=== PATIENT | male | born 1930 | race Caucasian/White ===

== ENCOUNTER 2017-10-28 07:43 | Observation (INO) | payer MEDICARE, OTHER ==
[~2017-10-28] VITALS: Ht 180.3 cm; Wt 91.4 kg
--- NOTE | ~2017-10-28 | CN ---
PATIENT NAME:YSABEL MOREL MEDICAL RECORD: [id number] : 30 LOCATION:D[facility]y D.2118 ADMIT DATE: 10/28/17 ACCOUNT: [id number] CONSULTING PHYSICIAN: FELIPE VIEIRA MD REFERRING PHYSICIAN: KOKI MORALES DO DATE OF CONSULTATION: 10/29/2017 HISTORY OF PRESENT ILLNESS: An 87-year-old gentleman, followed by Dr. Baker with a history of coronary artery disease, history of aortic stenosis, mild. 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 He had episode of chest pain yesterday. He is somewhat demented so history is somewhat iffy. If the cardiac enzymes are negative at this point. He typically according to is able to walk, etc. without anginal type symptomatology or dyspnea. We were asked to see him concerning his cardiovascular status. PAST MEDICAL HISTORY: Includes: 1. History of coronary artery disease. 2. Hypertension. 3. Hyperlipidemia, intolerant to statins. 4. Dementia. ALLERGIES: None known. MEDICATIONS: Include losartan 100 mg p.o. every day, verapamil 240 every day, pravastatin 80 every day, Namenda 10 b.i.d., Wellbutrin 300 b.i.d., hydrochlorothiazide 25 every day, and Synthroid 75 mcg every day. SOCIAL HISTORY: , nonsmoker and nondrinker. He takes all the ADLs. No set exercise program, but able to work in the yard. REVIEW OF SYSTEMS: The patient reports easy bruising but reports no swollen glands. The patient reports no fever, no night sweats, no significant weight gain, no significant weight loss. No significant exercise tolerance. The patient reports no dry eyes, no irritation, no vision change. Patient reports no difficulty hearing and no ear pain. Patient reports no frequent nose bleeds or nose and sinus problems. Patient reports on arm pain on exertion. No shortness of breath while lying down. No history of heart murmur. Patient reports no cough, no wheezing or coughing up blood. Patient reports no abdominal pain, no vomiting. Normal appetite. No diarrhea and not vomiting blood. No nausea and no constipation. Patient reports no incontinence. No difficulty urinating. No hematuria. No increased frequency. Patient reports no muscle aches. No weakness, no arthralgias, no back pain. No swelling of the extremities. Patient reports no abnormal mole, no jaundice, no rashes. Reports no loss of consciousness. No weakness and no numbness. No seizures, dizziness, or headaches. The patient reports no depression, no sleep disturbance, feeling safe in a relationship and no alcohol abuse. Patient reports on fatigue. Reports no runny nose or sinus pressure. No itching, no hives, and no frequent sneezing. PHYSICAL EXAMINATION: GENERAL: Pleasant gentleman in no acute distress. VITAL SIGNS: Blood pressure 137/89, pulse 60 and regular. HEENT: Normocephalic, atraumatic. NECK: No bruits noted. HEART: Regular, II-III/ systolic ejection murmur heard best primarily over CONSULT REPORT [id number] YSABEL MOREL the aortic area. LUNGS: Good air excursion. ABDOMEN: Soft, nontender. EXTREMITIES: Pulses are well preserved. There is no edema. DIAGNOSTIC DATA: ECG shows a left bundle branch block. IMPRESSION: Chest pain. Enzymes negative at this point. Given normal activity as of late, suspect noncardiac etiology. Does have gallstones. If surgery becomes indicated, no contraindication from a cardiovascular standpoint. TRANSINT:[id number] Voice Confirmation ID: [id number] DOCUMENT ID: [id number] FELIPE VIEIRA MD at 1155 CC: [id number] DICTATION DATE: 10/29/17846 BODY SERVICE TEAM MEMBER: 10/29/17 1214 DIS IN 10/29/17 [facility] [address] [place] [address]
[~2017-10-28 07:43] MED LIST: BRILINTA90 MG PO; CALAN SR240 MG PO; COZAAR100 MG PO; HYDROCHLOROTHIA25 MG PO; NITROQUICK0.4 MG SL; PRAVACHOL80 MG PO; SYNTHROID75 MCG PO
[2017-10-28 08:20] LABS: BASOPHILS 0.6 % (0-2); EOSINOPHILS 3.3 % (0-7); HEMATOCRIT 42.4 % (42.0-54.0); HEMOGLOBIN 14.9 g/dL (13.5-17.5); IMMATURE GRANULOCYTES 0.6 % (0-5); LYMPHOCYTES 25.1 % (15-50); MCHC 35.1 g/dL (31.0-37.0); MCV 88.1 fL (80.0-100.0); MONOCYTES 9.8 % (2-11); NEUTROPHILS 60.6 % (40-80); PLATELET COUNT 154 10x3/uL (130-400); RBC 4.81 10x6/uL (4.20-6.10); RDW 12.5 % (11.5-14.5); WBC 7.2 10x3/uL (4.8-10.8)
[2017-10-28 08:41] LABS: ALBUMIN 3.2 g/dL (3.4-5.0); ALKALINE PHOSPHATASE 88 U/L (46-116); ALT (SGPT) 18 U/L (10-68); CALC OSMOLALITY 292 mosm/kg (275-300); CALCIUM 9.9 mg/dL (8.5-10.1); CARBON DIOXIDE 29.9 mmol/L (21.0-32.0); CHLORIDE - SERUM 109 mmol/L (98-107); CREATININE - SERUM 1.1 mg/dL (0.6-1.3); GLUCOSE 120 mg/dL (74-106); POTASSIUM - SERUM 3.8 mmol/L (3.5-5.1); PROTEIN - SERUM 6.3 g/dL (6.4-8.2); SODIUM 144 mmol/L (136-145); UREA NITROGEN 27 mg/dL (7-18); eGFR NON AFRICAN AMERICAN 67 mL/min (90-120)
[2017-10-28 08:52] LABS: AMYLASE - SERUM 53 U/L (25-115); CKMB 1.7 U/L (0.0-3.6); CREATINE KINASE 59 UL (21-232); LIPASE 196 U/L (73-393); TROPONIN-I < 0.017 ng/mL (0.000-0.060)
[2017-10-28 09:39] LABS: APPEARANCE SLT CLOUDY (CLEAR); COLOR YELLOW (YELLOW)
[2017-10-28 09:40] LABS: AMORPHOUS SEDIMENT >1+ /lpf (NONE SEEN); BACTERIA FEW /hpf (NONE SEEN); BILIRUBIN NEGATIVE (NEGATIVE); EPITHELIAL CELLS RARE /hpf (0-5); GLUCOSE NEGATIVE (NEGATIVE); KETONE NEGATIVE (NEGATIVE); MUCUS <1+ /lpf (NONE SEEN); NITRITE NEGATIVE (NEGATIVE); PROTEIN NEGATIVE (NEGATIVE); RED CELLS - URINE 0-5 /hpf (0-5); UROBILINOGEN NORMAL (NORMAL); WHITE CELLS - URINE 0-5 /hpf (0-5)
[2017-10-28 19:27] LABS: CKMB 1.7 U/L (0.0-3.6); CREATINE KINASE 64 UL (21-232)
[2017-10-28 19:30] LABS: TROPONIN-I < 0.017 ng/mL (0.000-0.060)
[2017-10-28 21:30] VITALS: BP 120/50
[2017-10-28] MEDS ORDERED: NAMENDA10 MG PO (22:36)
[2017-10-28] MEDS ORDERED: BUPROPION XL300 MG PO (22:37)
[2017-10-28 23:07] VITALS: BP 112/58; BMI 27.9
[2017-10-29 01:12] VITALS: BP 131/57
[2017-10-29 01:33] LABS: CKMB 1.6 U/L (0.0-3.6); CREATINE KINASE 61 UL (21-232); TROPONIN-I < 0.017 ng/mL (0.000-0.060)
[2017-10-29 05:21] VITALS: BP 134/53
[2017-10-29 06:06] LABS: BASOPHILS 0.4 % (0-2); EOSINOPHILS 4.2 % (0-7); IMMATURE GRANULOCYTES 0.3 % (0-5); LYMPHOCYTES 21.8 % (15-50); MCH 30.8 pg (26.0-34.0); MCHC 34.1 g/dL (31.0-37.0); MEAN PLATELET VOLUME 9.8 fL (7.4-10.4); MONOCYTES 10.8 % (2-11); NEUTROPHILS 62.5 % (40-80); PLATELET COUNT 144 10x3/uL (130-400); RBC 4.54 10x6/uL (4.20-6.10); RDW 12.8 % (11.5-14.5); WBC 6.9 10x3/uL (4.8-10.8)
[2017-10-29 06:07] LABS: MCV 90.3 fL (80.0-100.0)
[2017-10-29 06:31] LABS: ALKALINE PHOSPHATASE 71 U/L (46-116); AMYLASE - SERUM 53 U/L (25-115); BILIRUBIN - TOTAL 0.65 mg/dL (0.2-1.3); CALC OSMOLALITY 286 mosm/kg (275-300); CALCIUM 8.8 mg/dL (8.5-10.1); CARBON DIOXIDE 30.3 mmol/L (21.0-32.0); CHLORIDE - SERUM 108 mmol/L (98-107); CKMB 1.4 U/L (0.0-3.6); CREATINE KINASE 56 UL (21-232); CREATININE - SERUM 1.3 mg/dL (0.6-1.3); GLUCOSE 101 mg/dL (74-106); LIPASE 142 U/L (73-393); PROTEIN - SERUM 5.9 g/dL (6.4-8.2); SODIUM 142 mmol/L (136-145); UREA NITROGEN 23 mg/dL (7-18); eGFR NON AFRICAN AMERICAN 55 mL/min (90-120)
[2017-10-29 06:35] LABS: ALT (SGPT) 26 U/L (10-68); TROPONIN-I < 0.017 ng/mL (0.000-0.060)
[2017-10-29 06:58] VITALS: Ht 180.3 cm; Wt 91.4 kg
[2017-10-29 07:50] VITALS: BP 137/89
[2017-10-29 10:58] VITALS: BP 98/62
[2017-10-29] MEDS ORDERED: ASPIRIN EC81 M1 PO (11:47)
== END 2017-10-29 13:14 | disposition home or self-care (01) ==
LOC: D.ER 07:43 → OBSVTIME 18:08 → D.EDHOLD 18:08 → D.M2 18:29
PROVIDERS: Family Medicine
DX: R07.89 Other chest pain (principal); I25.10 Atherosclerotic heart disease of native coronary artery without angina pectoris; Z95.5 Presence of coronary angioplasty implant and graft; I10 Essential (primary) hypertension; E78.5 Hyperlipidemia, unspecified; K80.80 Other cholelithiasis without obstruction; K21.9 Gastro-esophageal reflux disease without esophagitis; I73.9 Peripheral vascular disease, unspecified; I44.7 Left bundle-branch block, unspecified

== ENCOUNTER → 2018-07-17 12:26 | Outpatient (CLI) | payer MEDICARE, OTHER ==
[2017-10-29 06:58] VITALS: BMI 27.9
[~2018-07-17 12:26] MED LIST changes: +ASPIRIN EC81 M1 PO; +BUPROPION XL300 MG PO; +NAMENDA10 MG PO
== END | disposition home or self-care (01) ==
LOC: D.CT 12:26
DX: I65.23 Occlusion and stenosis of bilateral carotid arteries (principal)

== ENCOUNTER → 2018-07-31 12:36 | Outpatient (CLI) | payer MEDICARE, OTHER ==
[2017-10-29 06:58] VITALS: BMI 27.9
== END | disposition home or self-care (01) ==
LOC: D.CT 12:36
DX: R41.82 Altered mental status, unspecified (principal)

== ENCOUNTER 2018-11-10 07:34 | Inpatient (IN) | payer MEDICARE, OTHER ==
[2018-11-10] VITALS (8 sets, daily range): BP systolic 115–199; BP diastolic 56–89; BMI 29.3
--- NOTE | ~2018-11-10 | HEMODYNAMI ---
PATIENT:YSABEL MOREL MEDICAL RECORD: [id number] : 30 LOCATION:[facility] ADMISSION DATE: 11/10/18 Generatedon:11/10/201810:51 Patient name: YSABEL MOREL Patient #: [id number] SSN: : 1930 Date of study: 11/10/2018 Page: Of Hemodynamic Procedure Report Patient Data Patient Demographics Procedure consent was obtained First Name: YSABEL Gender: Male Last Name: MARIA TERESA : 1930 Middle Initial: C Age: 88 year(s) Patient #: [id number] Race: Unknown Additional ID: [id number] Contact details Address: [place] [address] State: [place] City: [place] Zip code: [address] Past Medical History Allergies: No known allergies Admission Admission Data Admission Date: 11/10/2018 Admission Time: 7:34 Height (in.): 70.87 BSA: 2.15 (m2) Height (cm.): 180 BMI: 29.32 (kg/m2) Weight (lbs.): 209.44 Weight (kg.): 95 Lab Results Lab Result Date: 11/10/2018 Lab Result Time: 0:00 Biochemistry Name Units Result Min Max BUN mg/dl 29 --(----)-* 7 18 Creatinine mg/dl 1.2 --(---*)-- 0.6 1.3 CBC Name Units Result Min Max Hemoglobin g/dl 16.3 --(--*-)-- 13.5 17.5 Procedure Procedure Types Cath Procedure Diagnostic Procedure LHC LH w/Coronaries PCI Procedure Coronary Stent Coronary Stent Initial Procedure Description Procedure Date Procedure Date: 11/10/2018 Procedure Start Time: 10:31 Procedure End Time: 10:47 Procedure Staff Name Function Dwayne Mcgregor MD Performing Physician Boubacar Lazaro RN Nurse Lillie Hatch RT Scrub Ritesh Nevarez RN Environmental Services Floor Tech Princess Dominique RT Monitor Procedure Data Cath Procedure Fluoroscopy Diagnostic fluoroscopy Total fluoroscopy Time: 2.6 time: 2.6 min min Diagnostic fluoroscopy Total fluoroscopy dose: 235 dose: 235 mGy mGy Contrast Material Contrast Material Type Amount (ml) Isovue 300 73 Entry Location Entry Primary Successful Side Size Upsize Upsize Entry Closure Succes sful Closure Location (Fr) 1 (Fr) 2 (Fr) Remarks Device Remarks Femoral Right 5 Fr 6 Fr Exoseal artery Short Estimated blood loss: 10 ml Diagnostic catheters Device Type Used For End Catheter Placement MULTIPACK Pigtail 5 Fr Procedure catheter MULTIPACK JL 4.0 5Fr Procedure catheter MULTIPACK 3DRC 5Fr Procedure catheter Procedure Complications No complications Procedure Medications Medication Administration Route Dosage Oxygen etCO2 Nasal cannula 2 l/min Lidocaine 2% added to field 20 Heparin Flush Bag added to field 2 bags (1000units/500ml NS) 0.9% NaCl I.V. 100 ml/hr Versed I.V. 1 mg Fentanyl I.V. 50 mcg Heparin Bolus I.V. 4000 units Versed I.V. 1 mg Fentanyl I.V. 50 mcg Fentanyl I.V. 50 mcg Hemodynamics Rest BSA: 2.15 (m2) HGB: 16.3 (g/dl) O2 Consumption: Estimated: 244.58 (ml/min) O2 Co nsumption indexed: Estimated:113.76 (ml/min/m) Heart Rate: 72 (bpm) Pressure Samples Time Site Value (mmHg) Purpose Heart Use Rate(bpm) 10:31 LV 127/10,25 Snapshot 74 10:32 AO 159/87(109) Pullback 67 Gradients Valve Time Site Site 2 Mean SEP/DFP Peak To Heart Use 1 (mmHg) (sec/min) Peak Rate (mmHg) (bpm) Aortic 10:32 LV AO 33 17 67 159/87(109) Calculations Valve P-P Mean Valve Index Valve Source Name Gradient Area Flow (cm2) Aortic 33 33 Snapshots Pre Cath Intra NCS Post Cath Vital Signs Time Heart Resp SPO2 etCO2 NIBP (mmHg) Rhythm Pain Sedation Rate (ipm) (%) (mmHg) Status Level (bpm) 10:03:11 67 16 94 36.1 162/57(122) NSR 0 (11) 10(A) , No pain 10:07:33 73 15 94 17.3 162/77(123) NSR 0 (11) 10(A) , No pain 10:11:53 72 15 94 33.8 166/77(118) NSR 0 (11) 10(A) , No pain 10:16:17 71 18 95 24.8 160/76(130) NSR 0 (11) 10(A) , No pain 10:20:41 73 13 96 24 161/75(129) NSR 0 (11) 10(A) , No pain 10:25:06 69 12 96 29.3 156/72(121) NSR 0 (11) 10(A) , No pain 10:29:32 69 16 94 25.6 162/68(97) NSR 0 (11) 10(A) , No pain 10:33:58 79 14 93 14.3 151/68(125) NSR 0 (11) 9(A) , No pain 10:38:16 76 11 93 27.8 139/66(112) NSR 0 (11) 9(A) , No pain 10:42:36 80 13 95 27.1 148/68(104) NSR 0 (11) 10(A) , No pain Medications Time Medication Route Dose Verified Delivered Reason Notes Effectiveness by by 10:07:04 Oxygen etCO2 2 Dwayne Buffie used for Nasal l/min Balbir Lazaro RN procedure cannula 10:07:21 Lidocaine 2% added 20ml Dwayne Dwayne for local to vial Balbir Mcgregor MD anesthetic field 10:07:39 Heparin Flush added 2 Dwayne Dwayne used for Bag to bags Balbir Mcgregor MD procedure (1000units/500ml field NS) 10:07:49 0.9% NaCl I.V. 100 Dwayne Buffie Per physician ml/hr Balbir Lazaro RN 10:29:29 Versed I.V. 1 mg Dwayne Buffie for sedation Balbir Lazaro RN 10:29:39 Fentanyl I.V. 50 Dwayne Buffie for sedation mcg Balbir Lazaro RN 10:33:05 Versed I.V. 1 mg Dwayne Buffie for sedation Balbir Lazaro RN 10:33:10 Fentanyl I.V. 50 Dwayne Buffie for sedation mcg Balbir Lazaro RN 10:35:25 Heparin Bolus I.V. 4000 Dwayne Buffie for verif ied units Balbir Lazaro RN anticoagulation with dr mcgregor 10:47:32 Fentanyl I.V. 50 Dwayne Buffie for sedation for mcg Jose MD Lazaro RN femstop discomfort Procedure Log Time Note 9:30:38 Time tracking: Regular hours (M-F 7:00 - 5:00) 9:30:41 Plan of Care:Hemodynamics will remain stable., Cardiac rhythm will remain stable., Comfort level will be maintained., Respiratory function will remain adequate., Patient/ family verbilizes understanding of procedure., Procedure tolerated without complication., Recovers from procedure without complications.. 9:43:48 Ritesh Nevarez RN sent for patient. Start room use. 9:52:39 Patient received from ED to CCL 3 Alert and oriented. Tansferred to table in Supine position. 9:52:40 Warm blankets applied, and shell hugger turned on for patient comfort. 9:52:40 Correct patient and procedure confirmed by team. 9:52:41 Signed procedure consent form obtained from patient. 9:52:42 ECG and BP/O2 sat monitors applied to patient. 9:52:43 Full Disclosure recording started 10:01:46 Vital chart was started 10:01:49 Baseline sample Acquired. 10:01:57 Rhythm: sinus rhythm 10:02:30 H&P Date Dictated: 11/10/2018 Emergent; H&P N/A. 10:02:33 Pre-procedure instructions explained to patient. 10:02:46 Family in waiting room. 10:02:49 Patient NPO since Midnight. 10:03:02 Patient allergic to No known allergies 10:03:06 Is the patient allergic to Iodine/contrast media? No. 10:03:09 Was the patient premedicated? Yes 10:03:11 Is patient on blood thinner?Yes 10:03:14 ACC The patient was administered the following blood thiners within the last 24 hours: ACCPlavix 10:03:16 Patient diabetic? No. 10:03:21 Snore? Yes 10:03:22 Sleep apnea? No 10:03:47 IV patent on arrival in left forearm with 0.9% NaCl at [facility]. 10:04:15 Lab Result : Creatinine 1.2 mg/dl 10:04:15 Lab Result : BUN 29 mg/dl 10:04:15 Lab Result : Hemoglobin 16.3 g/dl 10:04:21 Lab results completed and on chart. 10:04:26 Right groin area was prepped with chlora-prep and draped in sterile fashion 10:: Alarms reviewed by R. N. 10:: Sharps counted by scrub and verified by R.N. :: Physician paged 10:: Oxygen 2 l/min etCO2 Nasal cannula was administered by Boubacar Lazaro RN; used for procedure; 10:: Lidocaine 2% 20ml vial added to field was administered by Dwayne Mcgregor MD; for local anesthetic; 10::39 Heparin Flush Bag (1000units/500ml NS) 2 bags added to field was administered by Dwayne Mcgregor MD; used for procedure; 10::49 0.9% NaCl 100 ml/hr I.V. was administered by Boubacar Lazaro RN; Per physician; 10::46 Zero performed for pressure channel P1 10::58 Zero performed for pressure channel P1 10:14:23 Patient Height : 70.87 inches 10:14:28 Patient Weight : 209.44 lbs 10:16:26 Pre procedure: right dorsailis pedis pulse 2+ Normal; easily identifiable; not easily obliterated 10:28:41 Physician arrived 10:28:42 --------ALL STOP TIME OUT------ 10:28:43 Final Timeout: patient, procedure, and site verified with staff and physician. All members of the team are in agreement. 10:28:45 Right groin site verified by team. 10:28:50 Maximum allowable Isovue 300 dose 300ml. Physician notified. (300ml for normal creatinines. For patients with creatinine of 1.7 or higher multiply weight(kg) x 5 divided by creatinine.) 10:28:54 Fire Safety Assessment: A--An alcohol-based skin anteseptic being used preoperatively., C--Open oxygen or nitrous oxide is being used., D--An ESU, laser, or fiber-optic light is being used. 10:28:59 Physical assessment completed. ASA score P 2 - A patient with mild systemic disease as per Dwayne Mcgregor MD. 10:29:04 Sedation plan: IV Moderate Sedation Medication:Versed, Fentanyl 10:: Versed 1 mg I.V. was administered by Boubacar Lazaro RN; for sedation; 10:29:39 Fentanyl 50 mcg I.V. was administered by Boubacar Lazaro RN; for sedation; 10:30:35 Use device set Femoral Dx 10:30:36 ACIST Syringe (80822) opened to sterile field. 10:30:37 Bag Decanter (2002S) opened to sterile field. 10:30:37 Medline Cath Pack ([id number]) opened to sterile field. 10:30:38 DIAGNOSTIC WIRE .035 260cm J wire (262214) opened to sterile field. 10:30:39 ACIST Hand Control (65309) opened to sterile field. 10:30:39 ACIST Manifold (53671) opened to sterile field. 10:30:40 DIAGNOSTIC Multipack 5Fr catheter set (KO5534) opened to sterile field. 10:30:43 SHEATH 5FR Randolph (FOJ112) opened to sterile field. 10:30:47 Procedure started. 10:31:10 Local anesthetic to right femoral artery with Lidocaine 2% by Dwayne Mcgregor MD.INITIAL ACCESS ONLY 10:31:22 A 5 Fr sheath was inserted into the Right Femoral artery 10:31:43 A MULTIPACK Pigtail 5 Fr catheter was advanced over the wire and used for Procedure. 10:31:47 LV angiography performed. 10:32:08 EF : 60 % 10:32:14 Catheter removed. 10:32:21 A MULTIPACK JL 4.0 5Fr catheter was advanced over the wire and used for Procedure. 10:32:34 LCA angiography performed. 10:33:05 Versed 1 mg I.V. was administered by Boubacar Lazaro RN; for sedation; 10:33:10 Fentanyl 50 mcg I.V. was administered by Boubacar Lazaro RN; for sedation; 10:34:09 Catheter removed. 10:34:16 A MULTIPACK 3DRC 5Fr catheter was advanced over the wire and used for Procedure. 10:34:20 RCA angiography performed. 10:34:55 Catheter removed. 10:35:25 Heparin Bolus 4000 units I.V. was administered by Boubacar Lazaro RN; for anticoagulation; verified with dr mcgregor 10:35:56 INFLATOR Merit BasixCompak (CS4634) opened to sterile field. 10:35:57 GUIDE 6FR 3DRC SH catheter ([id number]) opened to sterile field. 10:35:58 CHOICE PT Extra Support 182cm wire ([id number]) opened to sterile field. 10:36:00 SHEATH 6FR Randolph (SVC232) opened to sterile field. 10:36:53 Proceeding to intervention. 10:37:01 Sheath upsized to a 6 Fr Short. 10:37:28 6 Fr 3DRCSH guide catheter was inserted over the wire 10:37:42 choice pt ex wire advanced. 10:38:40 Wire advanced across lesion. 10:39:16 Place stent Inflation Number: 1 A INTEGRITY RX 4.0 x 12 stent ([id number]) was prepped and advanced across the Prox RCA. The stent was deployed at 17 SAMMIE for 0:05 (min:sec). 10:39:26 Wire removed. 10:39:27 Guide catheter removed. 10:41:26 Sheath removed intact; hemostasis achieved with Exoseal to the Right Femoral artery. 10:41:40 EXOSEAL 6Fr (EX600) opened to sterile field. 10:41:42 Tegaderm 4 x 4 (1626W) opened to sterile field. 10:41:45 Procedure ended.(Physican Out) 10:42:02 Fluoroscopy time 02.60 minutes. 10:42:07 Fluoroscopy dose: 235 mGy 10:42:07 Flurop Dose total: 235 10:42:12 Contrast amount:Isovue 300 73ml. 10:42:14 Sharps counted by scrub and verified by R.N. 10:42:16 Insertion/operative site no bleeding no hematoma. 10:42:20 Post right femoral artery:stable 10:42:22 Post Procedure Pulses reassessed and unchanged 10:42:25 Post-procedure physical assessment completed. ASA score P 2 - A patient with mild systemic disease as per Dwayne Mcgregor MD. 10:42:36 Post procedure rhythm: unchanged. 10:43:04 Estimated blood loss: 10 ml 10:43:06 Post procedure instruction explained to patient.Patient verbalizes understanding. 10:43:21 Procedure type changed to Cath procedure, Diagnostic procedure, LHC, LHC w/Coronaries, PCI procedure, Coronary Stent, Coronary Stent Initial 10:43:24 Procedure and supply charges have been captured, reviewed, submitted and are correct. 10:43:48 Procedure Complication : No complications 10:43:54 Vital chart was stopped 10:44:01 Report given to Pre/Post Procedure Room. 10:44:20 FEMSTOP Gold ([id number]) opened to sterile field. 10:47:32 Fentanyl 50 mcg I.V. was administered by Boubacar Lazaro RN; for sedation; for femstop discomfort 10:47:43 Femstop placed over the right femoral artery at 176 mmHg. Hemostasis achieved. 10:47:52 Procedure ended. 10:47:52 Full Disclosure recording stopped 10:47:55 End room use (Document Last) Intervention Summary Intervention Notes Time ActionType Lesion and Equipment Action# Pressure Duration Attributes Used 10:39:16 Place stent Prox RCA INTEGRITY RX 1 17 00:05 4.0 x 12 stent ([id number]) Device Usage Item Name Manufacture Quantity Catalog Number Hospital Part Current Mini mal Lot# / Charge Number Stock Stock Serial# Code ACIST Acist 1 90045 916727 308341 133327 20 Syringe Medical (85266) Systems Inc Bag Decanter Microtek 1 2001S 881376 22050 920908 5 () Medical Inc. Medline Cath Medline 1 [id number] 071276 72606 443636 5 Pack ([id number]) DIAGNOSTIC [facility] 1 725893 227804 781547 769159 30 WIRE .035 260cm J wire (127695) ACIST Hand Acist 1 13958 849250 840819 843414 5 Control Medical (92303) Systems Inc ACIST Acist 1 08292 235664 110079 533662 5 Manifold Medical (69076) Systems Inc DIAGNOSTIC Cardinal 1 EU9300 588145 35950 244672 30 Multipack Health 5Fr catheter set (HC7618) SHEATH 5FR Terumo 1 JQR769 062160 415952 321114 5 Randolph (XKA104) MULTIPACK Cardinal 1 385846 5 Pigtail 5 Fr Health catheter MULTIPACK JL Cardinal 1 220931 5 4.0 5Fr Health catheter MULTIPACK Cardinal 1 230967 5 3DRC 5Fr Health catheter INFLATOR Merit 1 YT9693 550858 431445 967277 15 [facility] Medical BasixCompak (RY2201) GUIDE 6FR Medtronic 1 [id number] 062263 325384 354576 1 3DRC SH catheter ([id number]) CHOICE PT [place] 1 [id number] 105871 815745 661159 5 Extra Scientific Support 182cm wire ([id number]) SHEATH 6FR Terumo 1 JKK289 878365 554985 670696 40 Randolph (QPE627) INTEGRITY RX Medtronic 1 [id number] 114899 124573 901041 5 [id number] 4.0 x 12 stent ([id number]) EXOSEAL 6Fr Cardinal 1 EX600 155513 454072 413586 10 (EX600) Health Tegaderm 4 x 3M 1 1626W 825904 503062 391946 5 4 (1626W) FEMSTOP Gold [facility] 1 I73980 520720 058349 853444 5 (O04144) Signature Audit [place] Time Signature Unsigned Intra-Procedure 11/10/2018 Princess Dominique 10:51:40 AM RT(R) Signatures Monitor : Princess Dominique Signature : RT Date : Time : [address] [address]
--- NOTE | ~2018-11-10 | HEMODYNAMI ---
PATIENT:YSABEL MOREL MEDICAL RECORD: [id number] : 30 [address] [id number] ADMISSION DATE: 11/11/18 Generatedon:11/11/201810:20 Patient name: YSABEL MOREL Patient #: [id number] SSN: : 1930 Date of study: 11/11/2018 Page: Of Hemodynamic Procedure Report Patient Data Patient Demographics Procedure consent was obtained First Name: YSABEL Gender: Male Last Name: MARIA TERESA : 1930 [facility] Initial: C Age: 88 year(s) Patient #: [id number] Race: Unknown Additional ID: [id number] Contact details Address: [address] [address] State: [place] City: [place] Zip code: [address] Past Medical History Allergies: No known allergies Admission Admission Data Admission Date: 11/11/2018 Admission Time: 8:50 Room #: [facility] Height (in.): 70.87 BSA: 2.15 (m2) Height (cm.): 180 BMI: 29.32 (kg/m2) Weight (lbs.): 209.44 Weight (kg.): 95 Lab Results Lab Result Date: 11/11/2018 Lab Result Time: 7:49 Biochemistry Name Units Result Min Max BUN mg/dl 29 --(----)-* 7 18 Creatinine mg/dl 1.2 --(---*)-- 0.6 1.3 CBC Name Units Result Min Max Hematocrit % 45.3 --(-*--)-- 42 54 Hemoglobin g/dl 16.3 --(--*-)-- 13.5 17.5 Procedure Procedure Types Cath Procedure PCI Procedure Coronary Stent Coronary Stent Initial Procedure Description Procedure Date Procedure Date: 11/11/2018 Procedure Start Time: 10:11 Procedure End Time: 10:20 Procedure Staff Name Function Dwayne Mcgregor MD Performing Physician Dionicio Waller RT Monitor Myesha Jolly RT Scrub Octaviano Lorigan RN Nurse Procedure Data Cath Procedure Fluoroscopy Diagnostic fluoroscopy Total fluoroscopy Time: 1.1 time: 1.1 min min Diagnostic fluoroscopy Total fluoroscopy dose: 170 dose: 170 mGy mGy Contrast Material Contrast Material Type Amount (ml) Isovue 300 16 Entry Location Entry Primary Successful Side Size Upsize Upsize Entry Closure Succes sful Closure Location (Fr) 1 (Fr) 2 (Fr) Remarks Device Remarks Femoral Left 6 Fr Exoseal artery Short Estimated blood loss: 10 ml Procedure Complications No complications Procedure Medications Medication Administration Route Dosage 0.9% NaCl I.V. 100 ml/hr Oxygen etCO2 Nasal cannula 2 l/min Heparin Flush Bag added to field 2 bags (1000units/500ml NS) Lidocaine 2% added to field 20 Fentanyl I.V. 25 mcg Fentanyl I.V. 25 mcg Heparin Bolus I.V. 4000 units Hemodynamics Rest BSA: 2.15 (m2) HGB: 16.3 (g/dl) O2 Consumption: Estimated: 243.7 (ml/min) O2 Con sumption indexed: Estimated:113.35 (ml/min/m) Heart Rate: 71 (bpm) Snapshots Pre Cath Intra NCS Post Cath Vital Signs Time Heart Resp SPO2 etCO2 NIBP (mmHg) Rhythm Pain Sedation Rate (ipm) (%) (mmHg) Status Level (bpm) 9:57:42 72 16 94 0 162/79(125) NSR 0 (11) 10(A) , No pain 10:02:04 69 16 95 30.6 147/69(118) NSR 0 (11) 10(A) , No pain 10:06:20 68 15 94 32.9 147/73(122) NSR 0 (11) 10(A) , No pain 10:10:36 68 15 97 34.4 153/69(119) NSR 0 (11) 10(A) , No pain 10:14:52 70 19 91 32.2 155/78(123) NSR 0 (11) 10(A) , No pain 10:19:10 71 13 93 27.7 156/70(119) NSR 0 (11) 10(A) , No pain Medications Time Medication Route Dose Verified Delivered Reason Notes Effectiveness by by 9:55:52 0.9% NaCl I.V. 100 Octaviano Octaviano Per physician ml/hr Nando Collier RN RN 9:56:03 Oxygen etCO2 2 Octaviano Octaviano for low 02 sats Nasal l/min Nando Collier cannula RN RN 9:56:13 Heparin Flush added 2 Octaviano Octaviano used for Bag to bags Nando Collier procedure (1000units/500ml field RN RN NS) 9:56:24 Lidocaine 2% added 20ml Octaviano Octaviano for local to vial Nando Collier anesthetic field RN RN 10:06:18 Fentanyl I.V. 25 Octaviano Octaviano for sedation mcg Nando Collier RN RN 10:12:23 Fentanyl I.V. 25 Octaviano Octaviano for sedation mcg Nando Collier RN RN 10:14:32 Heparin Bolus I.V. 4000 Octaviano Octaviano for units Nando Collier anticoagulation RN floor coverings installer Log Time Note 9:: Patient Height : 70.87 inches 9::29 Patient Weight : 209.44 lbs 9:22:37 Signed procedure consent form obtained from patient. 9:22:40 Diagnostic Cath status Elective 9::41 Time tracking: Regular hours (M-F 7:00 - 5:00) 9::44 Plan of Care:Hemodynamics will remain stable., Cardiac rhythm will remain stable., Comfort level will be maintained., Respiratory function will remain adequate., Patient/ family verbilizes understanding of procedure., Procedure tolerated without complication., Recovers from procedure without complications.. 9:36:24 Octaviano Collier RN sent for patient. Start room use. 9:47:40 Patient received from Med II to CCL 2 Alert and oriented. Tansferred to table in Supine position. 9:47:41 Warm blankets applied, and shell hugger turned on for patient comfort. 9:47:41 Correct patient and procedure confirmed by team. 9:47:42 ECG and BP/O2 sat monitors applied to patient. 9:55:52 0.9% NaCl 100 ml/hr I.V. was administered by Octaviano Collier RN; Per physician; 9:56:03 Oxygen 2 l/min etCO2 Nasal cannula was administered by Octaviano Collier RN; for low 02 sats; 9:56:13 Heparin Flush Bag (1000units/500ml NS) 2 bags added to field was administered by Octaviano Collier RN; used for procedure; 9:56:24 Lidocaine 2% 20ml vial added to field was administered by Octaviano Collier RN; for local anesthetic; 9:56:32 Vital chart was started 10:02:57 Baseline sample Acquired. 10:03:01 Rhythm: sinus rhythm 10:03:03 Full Disclosure recording started 10:03:09 H&P Date Dictated: 11/10/2018 Within 30 days and on chart.. 10:03:10 Pre-procedure instructions explained to patient. 10:03:10 Pre-op teaching completed and patient verbalized understanding. 10:03:12 Family in patients room. 10:03:13 Patient NPO since Midnight. 10:03:20 Patient allergic to No known allergies 10:03:22 Is the patient allergic to Iodine/contrast media? No. 10:03:25 Is patient on blood thinner?Yes 10:03:26 ACC The patient was administered the following blood thiners within the last 24 hours: ACCPlavix 10:03:29 Patient diabetic? No. 10:03:31 Previous problem with sedation/anesthesia? No ? 10:03:34 Snore? Yes 10:03:41 Sleep apnea? No 10:03:42 Deviated septum? No 10:03:42 Opens mouth fully? Yes 10:03:43 Sticks out tongue? Yes 10:03:44 Airway obstruction? No ? 10:03:46 Dentures? No ? 10:03:49 Pre procedure: left dorsailis pedis pulse 2+ Normal; easily identifiable; not easily obliterated 10:03:51 Patient pain scale 0/10 ?. 10:03:58 IV patent on arrival in right hand with 0.9% NaCl at O. 10:04:37 Lab Result : BUN 29 mg/dl 10:04:37 Lab Result : Creatinine 1.2 mg/dl 10:04:37 Lab Result : Hemoglobin 16.3 g/dl 10:04:37 Lab Result : Hematocrit 45.3 % 10:04:40 Lab results completed and on chart. 10:04:42 Left groin area was prepped with chlora-prep and draped in sterile fashion 10:04:43 Alarms reviewed by R. N. 10:04:43 Sharps counted by scrub and verified by R.N. 10:04:46 ACIST Syringe (72342) opened to sterile field. 10:04:47 Bag Decanter (2002S) opened to sterile field. 10:04:47 Medline Cath Pack ([id number]) opened to sterile field. 10:04:48 ACIST Hand Control (58981) opened to sterile field. 10:04:48 ACIST Manifold (07618) opened to sterile field. 10:04:49 DIAGNOSTIC Multipack 5Fr catheter set (QU8233) opened to sterile field. 10:04:49 Tegaderm 4 x 4 (1626W) opened to sterile field. 10:04:51 DIAGNOSTIC WIRE .035 260cm J wire (983761) opened to sterile field. 10:05:07 CHOICE PT Extra Support 182cm wire ([id number]) opened to sterile field. 10:05:07 INFLATOR Merit BasixCompak (BM0311) opened to sterile field. 10:05:08 SHEATH 6FR Mayer (FSC210) opened to sterile field. 10:05:14 Physician arrived 10:05:14 --------ALL STOP TIME OUT------ 10:05:14 Final Timeout: patient, procedure, and site verified with staff and physician. All members of the team are in agreement. 10:05:16 Left groin site verified by team. 10:05:19 Maximum allowable Isovue 300 dose 300ml. Physician notified. (300ml for normal creatinines. For patients with creatinine of 1.7 or higher multiply weight(kg) x 5 divided by creatinine.) 10:05:22 Fire Safety Assessment: A--An alcohol-based skin anteseptic being used preoperatively., C--Open oxygen or nitrous oxide is being used., D--An ESU, laser, or fiber-optic light is being used. 10:05:25 Physical assessment completed. ASA score P 2 - A patient with mild systemic disease as per Dwayne Mcgregor MD. 10:05:30 Sedation plan: IV Moderate Sedation Medication:Fentanyl 10:06:18 Fentanyl 25 mcg I.V. was administered by Octaviano Collier RN; for sedation; 10:07:55 Zero performed for pressure channel P1 10:11:33 Procedure started. 10:11:36 Local anesthetic to left femerol artery with Lidocaine 2% by Dwayne Mcgregor MD.INITIAL ACCESS ONLY 10:11:44 A 6 Fr Short sheath was inserted into the Left Femoral artery 10:12:23 Fentanyl 25 mcg I.V. was administered by Octaviano Collier RN; for sedation; 10:12:30 GUIDE 6FR XBC 3.5 ([id number]) opened to sterile field. 10:12:44 6 Fr XBC 3.5 guide catheter was inserted over the wire 10:14:32 Heparin Bolus 4000 units I.V. was administered by Octaviano Collier RN; for anticoagulation; 10:15:07 CHOICE PT ES wire advanced. 10:15:08 Wire advanced across lesion. 10:15:25 Place stent Inflation Number: 1 A INTEGRITY RX 3.0 x 09 stent ([id number]) was prepped and advanced across the Undefined1. The stent was deployed at 17 SAMMIE for 0:10 (min:sec). 10:15:27 Stent catheter was removed intact over wire. 10:15:28 Wire removed. 10:15:29 Guide catheter removed. 10:15:39 EXOSEAL 6Fr (EX600) opened to sterile field. 10:15:46 Sheath removed intact; hemostasis achieved with Exoseal to the Left Femoral artery. 10:15:48 Procedure ended.(Physican Out) 10:18:48 Fluoroscopy time 01.10 minutes. 10:18:52 Flurop Dose total: 170 10:18:52 Fluoroscopy dose: 170 mGy 10:18:54 Contrast amount:Isovue 300 16ml. 10:18:55 Sharps counted by scrub and verified by R.N. 10:18:56 Insertion/operative site no bleeding no hematoma. 10:18:59 Post-op/insertion site Left Femoral artery dressed using a 4 x 4 and Tegaderm. 10:19:03 Post left femerol artery:stable, soft, clean and dry 10:19:05 Post Procedure Pulses reassessed and unchanged 10:19:07 Post-procedure physical assessment completed. ASA score P 2 - A patient with mild systemic disease as per Dwayne Mcgregor MD. 10:19:09 Post procedure rhythm: unchanged. 10:19:14 Estimated blood loss: 10 ml 10:19:15 Post procedure instruction explained to patient.Patient verbalizes understanding. 10:19:15 Patient needs reinforcement of post procedure teaching. 10:19:47 Procedure and supply charges have been captured, reviewed, submitted and are correct. 10:19:49 Procedure Complication : No complications 10:19:51 Vital chart was stopped 10:19:52 See physician's report for complete and final results. 10:20:06 Report given to PCU. 10:20:09 Patient transfered to PCU with Stretcher. 10:20:10 Procedure ended. 10:20:10 Full Disclosure recording stopped 10:20:13 End room use (Document Last) Intervention Summary Intervention Notes Time ActionType Lesion and Equipment Action# Pressure Duration Attributes Used 10:15:25 Place stent Undefined1 INTEGRITY RX 1 17 00:10 3.0 x 09 stent ([id number]) Device Usage Item Name Manufacture Quantity Catalog Number Hospital Part Current Mini mal Lot# / Charge Number Stock Stock Serial# Code ACIST Acist 1 93049 910332 757914 043817 20 Syringe Medical (81222) Systems Inc Bag Decanter Microtek 1 2001S 636194 07883 750597 5 (2001S) Medical Inc. Medline Cath Medline 1 [id number] 282748 50841 046126 5 Pack ([id number]) ACIST Hand Acist 1 59921 060116 681310 373175 5 Control Medical (27708) Systems Inc ACIST Acist 1 87959 052448 310686 455790 5 Manifold Medical (91315) Systems Inc DIAGNOSTIC Cardinal 1 [id number] 052329 76420 543555 30 Tonchidot 5Fr catheter set (NH1392) Tegaderm 4 x 3M 1 1626W 810738 877980 941499 5 4 (1626W) DIAGNOSTIC [facility] 1 462633 990406 140736 713877 30 WIRE .035 260cm J wire (307554) CHOICE PT Vista 1 [id number] 496255 358469 116759 5 Extra Scientific Support 182cm wire ([id number]) INFLATOR Merit 1 ET3821 076741 564186 967950 15 Mintera Medical BasixCompak (FY3929) SHEATH 6FR Terumo 1 GIO984 300348 890799 063859 40 Mayer (PMF201) GUIDE 6FR Cardinal 1 [id number] 153876 78860 086537 5 XBC 3.5 Health (43649744) INTEGRITY RX Medtronic 1 [id number] 042891 593022 319651 5 [id number] 3.0 x 09 stent ([id number]) EXOSEAL 6Fr Cardinal 1 EX600 878982 035136 158964 10 (EX600) Health Signature Audit [place] Stage Time Signature Unsigned Intra-Procedure 11/11/2018 Dionicio Waller 10:20:50 AM RT(R) Signatures Monitor : Dionicio Waller RT Signature : Date : Time : [address] [place] [address]
[2018-11-10] MEDS ORDERED: LEXAPRO5 MG PO (07:40)
[2018-11-10 07:58] LABS: BASOPHILS 0.3 % (0-2); HEMATOCRIT 45.3 % (42.0-54.0); HEMOGLOBIN 16.3 g/dL (13.5-17.5); IMMATURE GRANULOCYTES 0.3 % (0-5); LYMPHOCYTES 17.2 % (15-50); MCH 31.4 pg (26.0-34.0); MCV 87.3 fL (80.0-100.0); MEAN PLATELET VOLUME 9.9 fL (7.4-10.4); MONOCYTES 8.7 % (2-11); NEUTROPHILS 68.5 % (40-80); RBC 5.19 10x6/uL (4.20-6.10); RDW 12.7 % (11.5-14.5); WBC 11.5 10x3/uL (4.8-10.8)
[2018-11-10 08:06] LABS: APTT 28.6 SECONDS (22.8-39.4); INR 1.02 (0.85-1.17); PLATELET COUNT 188 10x3/uL (130-400); PROTIME 12.9 SECONDS (11.6-15.0)
[2018-11-10 08:12] LABS: ALBUMIN 3.4 g/dL (3.4-5.0); ALKALINE PHOSPHATASE 103 U/L (46-116); ALT (SGPT) 29 U/L (10-68); BILIRUBIN - TOTAL 0.47 mg/dL (0.2-1.3); CALC OSMOLALITY 293 mosm/kg (275-300); CALCIUM 9.5 mg/dL (8.5-10.1); CARBON DIOXIDE 29.8 mmol/L (21.0-32.0); CHLORIDE - SERUM 107 mmol/L (98-107); CREATININE - SERUM 1.2 mg/dL (0.6-1.3); GLUCOSE 113 mg/dL (74-106); POTASSIUM - SERUM 3.7 mmol/L (3.5-5.1); PROTEIN - SERUM 6.8 g/dL (6.4-8.2); SODIUM 144 mmol/L (136-145); UREA NITROGEN 29 mg/dL (7-18); eGFR NON AFRICAN AMERICAN 61 mL/min (90-120)
[2018-11-10 08:23] LABS: CKMB 1.7 U/L (0.0-3.6); CREATINE KINASE 66 UL (21-232); MAGNESIUM - SERUM 1.9 mg/dL (1.8-2.4); TROPONIN-I < 0.017 ng/mL (0.000-0.060)
[2018-11-11 00:47] VITALS: BP 147/66
[2018-11-11 04:00] VITALS: BP 123/44
[2018-11-11 06:18] LABS: ALBUMIN 2.8 g/dL (3.4-5.0); ANION GAP 8.5 mmol/L (8-16); BILIRUBIN - TOTAL 0.62 mg/dL (0.2-1.3); CALCIUM 8.7 mg/dL (8.5-10.1); CARBON DIOXIDE 29.5 mmol/L (21.0-32.0); CREATININE - SERUM 1.3 mg/dL (0.6-1.3); PROTEIN - SERUM 5.9 g/dL (6.4-8.2)
[2018-11-11 06:31] LABS: BASOPHILS 0.2 % (0-2); EOSINOPHILS 3.1 % (0-7); HEMATOCRIT 42.5 % (42.0-54.0); HEMOGLOBIN 14.6 g/dL (13.5-17.5); IMMATURE GRANULOCYTES 0.6 % (0-5); MCH 30.7 pg (26.0-34.0); MCHC 34.4 g/dL (31.0-37.0); MONOCYTES 8.5 % (2-11); NEUTROPHILS 71.6 % (40-80); PLATELET COUNT 164 10x3/uL (130-400); RBC 4.75 10x6/uL (4.20-6.10); WBC 9.8 10x3/uL (4.8-10.8)
[2018-11-11 06:34] LABS: MCV 89.5 fL (80.0-100.0)
--- NOTE | 2018-11-11 10:17 | HP ---
PATIENT: YSABEL ENCINAS MEDICAL RECORD: [id number] ACCOUNT: [id number] LOCATION:[address] : [birth year] ADMISSION DATE: 11/11/18 PCP: KOKI MORALES DO HISTORY AND PHYSICAL EXAMINATION DIAGNOSES: 1. Unstable angina. 2. Coronary artery disease. 3. Previous PTCA stent. 4. Abnormal ECG, left bundle branch block. 5. Hypertension. 6. Hypothyroidism, on replacement. HISTORY OF PRESENT ILLNESS: Mr. Encinas presents with unstable anginal symptomatology that started last night and this morning. He does have history of coronary artery disease, previous stenting by Dr. Baker approximately 4 years ago. PHYSICAL EXAMINATION: GENERAL APPEARANCE: Well-nourished, well-developed, appears stated age. Level of distress, comfortable. PSYCHIATRIC: Mental status, alert, normal affect. Orientation, oriented to time, place and person. EYES: Lids and conjunctiva, noninjected. No discharge, no pallor. ENT: Lips, teeth, gums, normal dentition. Oropharynx, no cyanosis, no pallor. NECK: Carotid arteries, bilateral normal upstroke, no bruits, no thrills. JUGULAR VEINS: No jugular venous pressure or distention. CERVICAL LYMPH NODES: Nontender, nonenlarged. THYROID: Not enlarged. Nontender. No nodules. LUNGS: Respiratory effort, unlabored. CHEST: Normal curvature. No thoracic deformity. No chest wall tenderness. Percussion, resonant. Auscultation, clear. No wheezes, no rales, no rhonchi. CARDIOVASCULAR: Precordial exam, nondisplaced. No heaves or pericardial thrills. Rate and rhythm, regular. Heart sounds, normal S1, normal S2. No S3, no gallop, no rub. Systolic murmur, not heard. Diastolic murmur, not heard. EXTREMITIES: No cyanosis, no edema. Peripheral pulses, full and equal in all extremities, except as noted. No bruits appreciated. ABDOMEN: Soft, nondistended. Normal aorta. No bruit. Nontender. No masses. Liver, nontender, no hepatomegaly. Spleen, nontender, no splenomegaly. MUSCULOSKELETAL: No joint tenderness. No joint swelling. No erythema. NEUROLOGICAL: Normal gait, normal strength, normal tone. SKIN: Warm and dry. REVIEW OF SYSTEMS: The patient reports easy bruising but reports no swollen glands. The patient reports no fever, no night sweats, no significant weight gain, no significant weight loss. No significant exercise tolerance. The patient reports no dry eyes, no irritation, no vision change. Patient reports no difficulty hearing and no ear pain. Patient reports no frequent nose bleeds or nose and sinus problems. Patient reports on arm pain on exertion. No shortness of breath while lying down. No history of heart murmur. Patient reports no cough, no wheezing or coughing up blood. Patient reports no abdominal pain, no vomiting. Normal appetite. No diarrhea and not vomiting blood. No nausea and no constipation. Patient reports no incontinence. No difficulty urinating. No hematuria. No increased frequency. Patient reports no muscle aches. No weakness, no arthralgias, no back pain. No swelling of the HISTORY AND PHYSICAL [id number] YSABEL ENCINAS extremities. Patient reports no abnormal mole, no jaundice, no rashes. Reports no loss of consciousness. No weakness and no numbness. No seizures, dizziness, or headaches. The patient reports no depression, no sleep disturbance, feeling safe in a relationship and no alcohol abuse. Patient reports on fatigue. Reports no runny nose or sinus pressure. No itching, no hives, and no frequent sneezing. OVERALL IMPRESSION: Unstable angina, continued chest pain requiring morphine. Most likely, he has hemodynamically significant coronary artery disease. We will proceed with coronary angiography. Further care depends upon the findings of the angiography. TRANSINT:[id number] Voice Confirmation ID: [id number] DOCUMENT ID: [id number] SONYA AREVALO MD at 1017 CC: [id number] DICTATION DATE: 11/10/18 09 PLUG MAKER: 11/10/18 1001 ADM IN [id number] [place] [address]
--- NOTE | 2018-11-11 10:17 | OP ---
PATIENT NAME: YSABEL MOREL MEDICAL RECORD: [id number] :30 LOCATION:D.M2 D.2115 ADMISSION DATE:11/11/18 SURGEON: SONYA AREVALO MD DATE OF OPERATION: 11/10/2018 PROCEDURES: 1. PTCA and stent, RCA. 2. Left heart catheterization. 3. Selective coronary angiography. 4. Left ventriculogram. INDICATION: Angina and coronary artery disease. PROCEDURE IN DETAIL: After informed consent was obtained with detailed description of risks and benefits as well as alternative therapies, the patient elected to proceed with angiogram and angioplasty. The right femoral area was prepped and draped in normal sterile fashion. The right femoral artery was cannulated via modified Seldinger technique with placement of 6-Cuban sheath. All catheters were exchanged through this sheath. FINDINGS: The left ventriculogram performed in standard 30-degree MCDONALD view reveals good cardiac wall motion throughout all segments. Overall ejection fraction is estimated at 60%. SELECTIVE CORONARY ANGIOGRAPHY: 1. Left main is with no significant angiographic disease. 2. Left anterior descending has previously placed stents in the obtuse marginal; however, proximal to these stents, there is 90% stenosis at the ostium of the obtuse marginal, otherwise only mild irregularities throughout the circumflex and its branches. 3. Left anterior descending has moderate irregularities, but no flow-limiting stenosis. 4. Right coronary has greater than 80% stenosis with pressure damping of the diagnostic catheter at the ostium. PTCA AND STENT OF THE RCA: Stent used was 4.0 x 12 mm Integrity. Result was 0% residual stenosis. OVERALL IMPRESSION: Successful PTCA and stent of the RCA, going from 80% initial stenosis to 0% residual. PLAN: PTCA and stent of the circumflex in the near future. TRANSINT:[id number] Voice Confirmation ID: [id number] DOCUMENT ID: [id number] SONYA AREVALO MD at 1017 CC: [id number] DICTATION DATE: 11/10/18 1043 FLEET ADMINISTRATOR: 11/10/18 1502 ADM IN [facility] [address] [place] [address]
[2018-11-11 11:00] VITALS: BP 137/64
[2018-11-11 12:42] VITALS: BMI 29.3
--- NOTE | 2018-11-11 14:39 | OP ---
PATIENT NAME: YSABEL MOREL MEDICAL RECORD: [id number] :30 LOCATION:D[address]M2 D.2115 ADMISSION DATE:11/11/18 SURGEON: SONYA AREVALO MD DATE OF OPERATION: 11/11/2018 PROCEDURES: 1. PTCA stent left circumflex, ramus intermedius. 2. Selective coronary angiography. INDICATION: Angina and coronary artery disease. DESCRIPTION OF PROCEDURE: After informed consent was obtained and after a detailed description of risks, benefits as well as alternative therapies, the patient elected to proceed with angiogram and angioplasty. The right femoral area was prepped and draped in normal sterile fashion. Right femoral artery was cannulated via modified Seldinger technique with placement of 6-Malawian sheath. All catheters exchanged through the sheath. SELECTIVE CORONARY ANGIOGRAPHY: The ramus intermedius has 90% stenosis at the ostium. This was addressed with a 3.0 x 9 Integrity stent. Result was 0% residual stenosis. OVERALL IMPRESSION: Successful PTCA stent of the ramus intermedius going from 90% initial stenosis to 0% residual. TRANSINT:[id number] Voice Confirmation ID: [id number] DOCUMENT ID: [id number] SONYA AREVALO MD at 1439 CC: [id number] DICTATION DATE: 11/11/18 1021 [employer] AX DEVELOPER: 11/11/18 [address] [place] [address]
[2018-11-11 15:52] VITALS: BP 113/91
[2018-11-11 16:08] VITALS: BP 120/86
--- NOTE | 2018-11-11 17:10 | MORECARE ---
CASE MANAGEMENT DISCHARGE SUMMARY PATIENT: YSABEL MOREL UNIT: [id number] ADM DATE: 11/11/18 AGE: 88 : 30 SEX: M ROOM/BED: D.3446 AUTHOR: TIANNA,DOC PHYSICIAN: REFERRING PHYSICIAN: SONYA AREVALO MD DATE OF SERVICE: 11/11/18 Discharge Plan Patient Name: YSABEL MOREL Facility: [facility]:[place] : 1930 Planned Disposition: Home Anticipated Discharge Date: 11/12/18 Discharge Date: Expected LOS: 1 Initial Reviewer: [email or web address] Initial Review Date: 11/11/2018 Generated: 11/11/18 6:10 pm Comments DCP- Discharge Planning Updated by [email or web address]: Robby Batres on 11/11/18 4:[address] Patient Name: YSABEL MOREL Admission Status: ER Accout number: [id number] Admission Date: 11-11-2018 : 1930 Admission Diagnosis: Attending: KRISTINE AREVALO Current LOS: 1 Anticipated DC Date: 11-12-2018 Planned Disposition: Home Primary Insurance: MEDICARE A & B Discharge Planning Comments: CM MET WITH PT AND SPOUSE IN ROOM TO DISCUSS DISCHARGE PLANNING AND NEEDS. YSABEL MOREL provided verbal consent to discuss current and ongoing needs with/in the presence of: , MYA. PT REPORTS LIVING AT HOME INDEPENDENTLY WITH HIS . PT HAS NO MEDICAL EQUIPMENT. THEY HAVE HOUSEKEEPING AND A PRIVATE CAREGIVER 4 HOURS DAILY TO DO WHATEVER THEY NEED DONE AT HOME. CM DISCUSSED AVAILABILITY OF HOME HEALTH, REHAB SERVICES AND MEDICAL EQUIPMENT. PT DENIES DISCHARGE NEEDS, REPORTS FAMILY WILL PICK HIM UP FOR DISCHARGE HOME. IMPORTANT MESSAGE FROM MEDICARE PROVIDED AND EXPLAINED. PT PLANS TO DISCHARGE HOME WITH SPOUSE, DENIES NEEDS AT THIS TIME. CM TO FOLLOW AND ASSIST IF NEEDED. Supervisor Fur Floor Worker: Robby Batres DCPIA - Discharge Planning Initial Assessment Updated by [email or web address]: Robby Batres on 11/11/18 5:07 pm * Is the patient Alert and Oriented? Yes * How many steps to enter\exit or inside your home? * PCP DR. MORALES * Pharmacy [facility], LOC[facility]ALL * Preadmission Environment Home with Family * ADLs Independent * Equipment None * Other Equipment NO MEDICAL EQUIPMENT PROVIDER PREFERENCE * List name and contact numbers for known caregivers / representatives who currently or will assist patient after discharge: MYA MOREL, SPOUSE, * Verbal permission to speak to the caregivers and representatives has been obtained from the patient. Yes * Community resources currently utilized Private Duty Care * Please name any agencies selected above. PRIVATELY HIRED CAREGIVERS FOR PATIENT AND , 4 HOURS PER DAY PRIVAGELY HIRED HOUSEKEEPING * Additional services required to return to the preadmission environment? No * Can the patient safely return to the preadmission environment? Yes * Has this patient been hospitalized within the prior 30 days at any hospital? No Patient Name: YSABEL MOREL Page [id number] at 1710 All edits/amendments must be made on the electronic document DICTATION DATE: 11/11/181709 BOWLING FLOOR MANAGER: OMAIRA 11/11/181709 RPT#: [id number] CO DATE: STATUS: ADM IN [facility] [address] [place] [address] END OF REPORT
[2018-11-11 20:00] VITALS: BP 127/71
[2018-11-12] VITALS: BP 126/88
[2018-11-12 04:00] VITALS: BP 138/77
[2018-11-12 08:36] VITALS: BP 171/78
[2018-11-12] MEDS ORDERED: PLAVIX75 MG PO (10:44)
--- NOTE | 2018-11-13 08:44 | MORECARE ---
CASE MANAGEMENT DISCHARGE SUMMARY PATIENT: YSABEL MOREL UNIT: [id number] ADM DATE: 11/11/18 AGE: 88 : 30 SEX: M ROOM/BED: D.6338 AUTHOR: TIANNA,DOC PHYSICIAN: REFERRING PHYSICIAN: SONYA AREVALO MD DATE OF SERVICE: 11/13/18 Discharge Plan Patient Name: YSABEL MOREL Facility: [facility]:[place] : 1930 Planned Disposition: Home Anticipated Discharge Date: 11/12/18 Discharge Date: 11/12/2018 Expected LOS: 1 Initial Reviewer: [email or web address] Initial Review Date: 11/11/2018 Generated: 11/13/18 9:43 am Comments DCP- Discharge Planning Updated by [email or web address]: Robby Batres on 11/11/18 4:[address] Patient Name: YSABEL MOREL Admission Status: ER Accout number: [id number] Admission Date: 11-11-2018 : 1930 Admission Diagnosis: Attending: KRISTINE AREVALO Current LOS: 1 Anticipated DC Date: 11-12-2018 Planned Disposition: Home Primary Insurance: MEDICARE A & B Discharge Planning Comments: CM MET WITH PT AND SPOUSE IN ROOM TO DISCUSS DISCHARGE PLANNING AND NEEDS. YSABEL MOREL provided verbal consent to discuss current and ongoing needs with/in the presence of: , MYA. PT REPORTS LIVING AT HOME INDEPENDENTLY WITH HIS . PT HAS NO MEDICAL EQUIPMENT. THEY HAVE HOUSEKEEPING AND A PRIVATE CAREGIVER 4 HOURS DAILY TO DO WHATEVER THEY NEED DONE AT HOME. CM DISCUSSED AVAILABILITY OF HOME HEALTH, REHAB SERVICES AND MEDICAL EQUIPMENT. PT DENIES DISCHARGE NEEDS, REPORTS FAMILY WILL PICK HIM UP FOR DISCHARGE HOME. IMPORTANT MESSAGE FROM MEDICARE PROVIDED AND EXPLAINED. PT PLANS TO DISCHARGE HOME WITH SPOUSE, DENIES NEEDS AT THIS TIME. CM TO FOLLOW AND ASSIST IF NEEDED. State Epidemiologist: Robby Batres DCPIA - Discharge Planning Initial Assessment Updated by [email or web address]: Robby Batres on 11/11/18 5:07 pm * Is the patient Alert and Oriented? Yes * How many steps to enter\exit or inside your home? * PCP DR. MORALES * Pharm[facility], [place] * Preadmission Environment Home with Family * ADLs Independent * Equipment None * Other Equipment NO MEDICAL EQUIPMENT PROVIDER PREFERENCE * List name and contact numbers for known caregivers / representatives who currently or will assist patient after discharge: MYA MOREL, SPOUSE, * Verbal permission to speak to the caregivers and representatives has been obtained from the patient. Yes * Community resources currently utilized Private Duty Care * Please name any agencies selected above. PRIVATELY HIRED CAREGIVERS FOR PATIENT AND , 4 HOURS PER DAY PRIVAGELY HIRED HOUSEKEEPING * Additional services required to return to the preadmission environment? No * Can the patient safely return to the preadmission environment? Yes * Has this patient been hospitalized within the prior 30 days at any hospital? No Last DP export: 11/11/18 4:10 p Patient Name: YSABEL MOREL Page [id number] at 0844 All edits/amendments must be made on the electronic document DICTATION DATE: 11/13/1843 CRA: OMAIRA 11/13/18 0843 RPT#: [id number] DC DATE:11/12/18 STATUS: DIS IN [facility] [address] [place] [address] END OF REPORT
== END 2018-11-12 11:34 | disposition home or self-care (01) | DRG 249 ==
LOC: D.ER 07:34 → D.M2 08:15
PROVIDERS: Family Medicine; ADMIT Internal Medicine Interventional Cardiology
PROC: 4A023N7 Measurement of Cardiac Sampling and Pressure, Left Heart, Percutaneous Approach (ICD-10-PCS; 2018-11-10)
PROC: B2111ZZ Fluoroscopy of Multiple Coronary Arteries using Low Osmolar Contrast (ICD-10-PCS; 2018-11-10)
PROC: B2151ZZ Fluoroscopy of Left Heart using Low Osmolar Contrast (ICD-10-PCS; 2018-11-10)
PROC: 02703DZ Dilation of Coronary Artery, One Artery with Intraluminal Device, Percutaneous Approach (ICD-10-PCS; principal; 2018-11-10 09:43)
PROC: 02703DZ Dilation of Coronary Artery, One Artery with Intraluminal Device, Percutaneous Approach (ICD-10-PCS; 2018-11-11)
DX: I25.110 Atherosclerotic heart disease of native coronary artery with unstable angina pectoris (principal); I44.7 Left bundle-branch block, unspecified; I10 Essential (primary) hypertension; E03.9 Hypothyroidism, unspecified